=== PATIENT | female | born 1940 | race Asian ===

== ENCOUNTER 2018-03-20 16:31 | Emergency (ER) | payer SELFPAY ==
[~2018-03-20] VITALS: Ht 149.9 cm; Wt 56.8 kg
[2018-03-20] MEDS ORDERED: TICA90TA PO (16:52)
[2018-03-20] MEDS ORDERED: ASPI-556 PO (16:52)
[2018-03-20] MEDS ORDERED: CARV3 PO (16:52)
[2018-03-20] MEDS ORDERED: ATOR40TA28 PO (16:52)
[2018-03-20] MEDS ORDERED: ERYT250C68 PO (16:52)
[2018-03-20 18:35] LABS: BASOPHILS % (AUTO) 0.4 % (0.0-2.0); HEMATOCRIT 33.7 % (36-46); HEMOGLOBIN 11.2 g/dL (12.0-16.0); LYMPHOCYTES # (AUTO) 2.3 K/uL (1.0-4.8); LYMPHOCYTES % (AUTO) 17.5 % (22.0-44.0); MEAN CORPUSCULAR HEMOGLOBIN 29.8 pg (26.0-34.0); MEAN CORPUSCULAR HGB CONC 33.4 G/dL (31.0-37.0); MEAN CORPUSCULAR VOLUME 89 fL (80-100); MONOCYTES # (AUTO) 1.1 K/uL (0.1-1.0); MONOCYTES % (AUTO) 8.2 % (2.0-9.0); NEUTROPHILS # (AUTO) 9.4 K/uL (1.8-7.7); NEUTROPHILS % (AUTO) 72.9 % (40.0-70.0); PLATELET COUNT (AUTO) 275 K/uL (150-450); RED BLOOD CELL COUNT(AUTO) 3.77 MIL/uL (4.00-5.20); RED CELL DISTRIBUTION WIDTH 15.9 % (11.5-14.5)
[2018-03-20 18:43] LABS: APPEARANCE,URINE CLEAR (CLEAR); BILIRUBIN,URINE NEGATIVE (NEGATIVE); GLUCOSE, URINE (UA) NEGATIVE (NEGATIVE); KETONES,URINE NEGATIVE (NEGATIVE); LEUKOCYTE ESTERASE ,URINE SMALL (NEGATIVE); NITRATE,URINE NEGATIVE (NEGATIVE); OCCULT BLOOD,URINE SMALL (NEGATIVE); PH,URINE 6.5 (5.0-8.0); PROTEIN,URINE SEE CONFIRM (NEGATIVE); UROBILINOGEN,URINE 0.2 mg/dL (<=1.0)
[2018-03-20 18:44] LABS: CREATININE 1.57 mg/dL (0.60-1.30); POTASSIUM 3.5 mmol/L (3.5-5.1)
[2018-03-20 18:55] LABS: PROTHROMBIN TIME 10.3 SEC (9.4-11.6)
[2018-03-20 18:59] LABS: SULFOSALICYLIC ACID,URINE 2+ (Negative)
[2018-03-20 19:01] LABS: SQUAMOUS EPITHELIAL CELL,UR Moderate /LPF (None Seen)
[2018-03-20 19:02] LABS: BACTERIA,URINE Rare /HPF (None Seen)
[2018-03-20] MEDS ORDERED: IOVERSOL 320 MG/ML 100 ML VIAL ONE (19:04)
[2018-03-20] MEDS ORDERED: SODIUM CHLORIDE 0.9% 100 ML ONE (19:04)
[2018-03-20 19:08] LABS: ALBUMIN 3.2 g/dL (3.4-5.0); BILIRUBIN,TOTAL 0.5 mg/dL (0.1-1.0); TOTAL PROTEIN, SERUM 9.1 g/dL (6.4-8.2)
[2018-03-20] MEDS ORDERED: SODIUM CHLORIDE 0.9% 1,000 ML IV ONE (19:15)
[2018-03-20] MEDS ORDERED: MORPHINE SULFATE 4 MG/ML SYRINGE IVP ONE (21:45)
[2018-03-20 21:55] VITALS: BP 146/77
== END 2018-03-20 23:14 | disposition home or self-care (01) ==
LOC: EMS 16:32
DX: S13.4XXA Sprain of ligaments of cervical spine, initial encounter (principal); R51 Headache; I10 Essential (primary) hypertension; E78.00 Pure hypercholesterolemia, unspecified; I25.10 Atherosclerotic heart disease of native coronary artery without angina pectoris; I25.2 Old myocardial infarction; Z79.82 Long term (current) use of aspirin; X50.9XXA Other and unspecified overexertion or strenuous movements or postures, initial encounter; Y93.89 Activity, other specified; Y92.89 Other specified places as the place of occurrence of the external cause; Y99.8 Other external cause status
CPT/HCPCS: 36415; 70496; 70498; 71045; 71275; 80053; 81001; 82550; 83880; 84484; 85025; 85610; 87086; 93005; 96374; 99285; J2270; J7050; Q9967